=== PATIENT | female | born 1995 | race Caucasian/White ===

== ENCOUNTER 2021-12-07 11:51 | Emergency (ER) | payer BC, SELFPAY ==
[2021-12-07 12:05] VITALS: BP 143/90; PULSE 101; RESP 19; TEMP 37.1; O2SAT 98; BMI 34.4
[2021-12-07 12:45] LABS: UTC Influenza A Antigen Negative (Negative)
[2021-12-07 12:46] LABS: UTC Influenza B Antigen Negative (Negative)
--- NOTE | 2021-12-07 13:13 | HMH.EDUTC ---
[facility] [place] Dis[place] Clinical Impression: URI (upper respiratory infection) Qualifiers: URI type: unspecified URI Qualified Code(s): J06.9 - Acute upper respiratory infection, unspecified Disposition: Home, Self-Care Condition on Discharge: Good Instructions: Sinusitis, DI for Sinusitis, Cefdinir Additional Instructions: *Monitor Temp, Over the counter Motrin or Tylenol as directed/as needed Tylenol every 4 hours and Motrin every 6 hours (as long as your family doctor has told you that you can take it) for fever or pain. and straight to ER if unable to lower temp less than 101.0 after medication given *Warm salt water gargles may help to soothe the throat *Throat Lozenges *Warm fluids like tea with honey may help to soothe the throat *Sleep elevated *Humidifier/Vaporizer *Bromfed may cause drowsiness. Know how it effects you (your child) before driving, caring for small child, or sending your child to school. Not other antihistamines/allergy medications while taking bromfed Your throat swab was sent for culture. Those results are typically sent to your primary care. Be sure to follow up in 2-3 days with your family doctor/primary care physician if no improvement so they can review those result and treat if necessary. If you don?t have a primary care doctor, I recommend you get one but in the mean time, you will have to return to a walk in clinic Follow up IMMEDIATELY for new or worsening symptoms or no Noticeable improvement over the next 48-72 hours. 911 for difficulty breathing or swallowing You were tested for today for COVID19 your test result should be back in the next 24-48 hours, you may check the [facility] my Health portal for your results if you have trouble logging on or seeing your results you may call You was given a handout with instructions for Self Quarantine and Self isolation for while you wait on test results and what to do if they are positive If you are positive the Health Dept will be contacting you also Make sure to take your Vitamins Vit. C Vit D and Zinc if you can take them Prescriptions: Cefdinir [Omnicef 300mg Capsule] 300 mg PO BID #20 cap Transmission Status: Received by [facility] #[id number] Referrals: Dane,Gorge, MD [Primary Care Provider] - As needed Forms: Work/School Release Time of Disposition: 13:32 Medical Decision Making - Anupam Inquiry Pt receiving controlled substance: No Anupam was queried for this patient: No Vital Signs: 12/07/21 12:05 12/07/21 13:27 Temperature 98.8 F 98.8 F Temperature Source Oral Pulse Rate 101 H Pulse Rate [Right Brachial] 101 H Respiratory Rate 19 19 Blood Pressure 143/90 H Blood Pressure [Right Arm] 143/90 H Blood Pressure Mean [Right Arm] 107 Blood Pressure Source [Right Arm] Automatic Cuff Blood Pressure Position [Right Arm] Sitting 02 Sat by Pulse Oximetry 98 Oxygen Delivery Method Room Air - Lab Data Lab results reviewed: Yes: I reviewed the patient's lab results. Lab Results 12/07/21 12:05: Influenza Type A Ag Negative, Influenza Type B Ag Negative 12/07/21 13:04: Strep Scn Rapid Clinic Negative Orders (Tests/Meds): ORDERS Category Date Time Status Covid-19 Nasal PCR ([facility]) Routine Lab 12/07/21 12:33 Received Strep Screen Confirmation Stat Micro 12/07/21 13:04 Received Medical Decision Narrative: Patient states that she is allergic to amoxicillin but has taken Cefdinir in the past without complications or reactions [facility] [place] HPI - General Stated complaint: sore throat, cough, body aches/weakness, h/a Time Seen by Provider: 12/07/21 13:14 Mode of Arrival: Ambulatory Source of Information: Patient Limitations: No Limitations Description of Symptoms (Recalled from Triage Doc. by RN): PATIENT C/O PRODUCTIVE COUGH, BODY ACHES, AND CONGESTION X 1 WEEK HEENT Symptoms (Recalled from RN notes): Yes Resp Symptoms (Recalled from RN notes): Yes Skin Symptoms (Recalled from RN notes): No MS Symptoms (Recalled from R
[2021-12-07 13:15] LABS: UTC Strep Screen (Rapid) Negative (Negative)
[2021-12-07 13:27] VITALS: BP 143/90; PULSE 101; RESP 19; TEMP 37.1; O2SAT 98
== END 2021-12-07 13:39 | disposition home or self-care (01) ==
PROVIDERS: Emergency Provider Nurse Practitioner; PCP Social Worker
DX: U07.1 COVID-19 (principal); J06.9 Acute upper respiratory infection, unspecified
CPT/HCPCS: 87804; 87880; 99202; C9803; G0463; U0003; U0005

== ENCOUNTER → 2021-12-10 12:07 | Outpatient (CLI) | payer BC, SELFPAY | PROVIDERS: Visit Provider Nurse Practitioner | DX: U07.1 COVID-19 (principal) | CPT/HCPCS: C9803; U0003; U0005 ==

== ENCOUNTER → 2021-12-31 13:00 | Outpatient (CLI) | payer BC, SELFPAY ==
--- NOTE | 2021-12-31 13:04 | XR_ITS ---
FINAL REPORT CLINICAL HISTORY: LT FOOT PAIN, STEPPED ON BROKEN GLASS 1 YEAR AGO, PAIN AROUND HEEL FINDINGS: LEFT FOOT 2 views of the left foot were obtained. There is no acute fracture or dislocation. Visualized joint spaces are normally aligned. Within the left heel pad is a 10 mm foreign body. Calcaneal spur is noted. IMPRESSION: 10 mm foreign body in the left heel pad. Reviewed, Interpreted and Dictated by Casimiro Mcdaniel III, MD Transcribed by Chey Knutson Authenticated by Casimiro Mcdaniel III, MD on 12/31/2021 03:09:[address] [facility]
== END ==
PROVIDERS: PCP Social Worker; Visit Provider Social Worker
DX: M79.672 Pain in left foot (principal)
CPT/HCPCS: 73630

== ENCOUNTER → 2022-01-02 16:00 | Outpatient (CLI) | payer BC, SELFPAY ==
--- NOTE | 2022-01-02 16:06 | XR_ITS ---
PROCEDURE INFORMATION: Exam: XR Left Foot Exam date and time: 01/02/2022 4:06 PM Age: 26 years old Clinical indication: Condition or disease; Other: Post fb removal from left heel area; Patient HX: Glass fb removed from left heel. ; Additional info: Foreign body TECHNIQUE: Imaging protocol: XR Left foot. Views: 1 or 2 views. COMPARISON: CR XR FOOT LT MIN 3V 12/31/2021 1:07 PM FINDINGS: Bones/joints: There is no evidence of acutely displaced fractures. There is no evidence of joint dislocation. No aggressive osseous lesions. Soft tissues: In the 1st image, there is a 1 cm linear dense foreign body in the soft tissues of the heel. The foreign body is not visualized on the post removal images. No other radiopaque foreign bodies are appreciated. Swelling at the heel. IMPRESSION: Successful removal of a dense foreign body in the soft tissues of the heel. No residual foreign bodies noted.
== END ==
PROVIDERS: PCP Podiatrist; Visit Provider Podiatrist
DX: S90.852A Superficial foreign body, left foot, initial encounter (principal)
CPT/HCPCS: 73620

== ENCOUNTER → 2022-01-22 15:44 | Outpatient (CLI) | payer BC, SELFPAY | PROVIDERS: Visit Provider Obstetrics & Gynecology | DX: Z01.419 Encounter for gynecological examination (general) (routine) without abnormal findings (principal) | CPT/HCPCS: 87086 ==

== ENCOUNTER → 2022-01-29 11:15 | Outpatient (CLI) | payer BC, SELFPAY ==
[2022-01-29 11:46] LABS: Basophils # 0.1 K/mm3 (0-0.2); Basophils % 1.9 % (0.1-2.0); Eosinophils # 0.2 K/mm3 (0.0-0.4); Eosinophils % 2.8 % (0.1-12.0); Hematocrit 44.1 % (37.0-47.0); Hemoglobin 14.8 g/dL (12.2-16.2); Mean Corpuscular HGB Conc 33.6 g/dL (31.8-35.4); Mean Corpuscular Hemoglobin 31.2 pg (27.0-31.2); Mean Platelet Volume 9.4 fl (7.4-10.4); Monocytes # 0.2 K/mm3 (0.1-1.0); Monocytes % 3.4 % (1.7-9.3); Neutrophils % 61.8 % (37.0-80.0); Platelet Count 228 K/mm3 (142-424); Red Blood Count 4.74 M/mm3 (4.20-5.40); Red Cell Distribution Width 12.4 % (11.5-17.5); White Blood Count 6.5 K/mm3 (4.8-10.8)
[2022-01-29 13:00] LABS: Alanine Aminotransferase 23 U/L (12-78); Albumin Level 4.3 g/dl (3.5-5.0); Albumin/Globulin Ratio 1.5 (1.1-1.8); Alkaline Phosphatase 50 U/L (38-126); Anion Gap 11.9 mEq/L (5-15); Aspartate Amino Transferase 26 U/L (14-36); Bilirubin,Total 0.6 mg/dl (0.2-1.3); Blood Urea Nitrogen 7 mg/dl (7-17); Calcium 8.9 mg/dl (8.4-10.2); Carbon Dioxide 26 mmol/L (22.0-30.0); Chloride 105 mmol/L (98-107); Chol/HDL Ratio 3.4 (1-3.5); Cholesterol 168 mg/dl (140-200); Estimated Glomerular Filt Rate 102 ml/min (>60); GFR (African American) 123 ML/MIN (>60); Globulin 2.8 g/dL (1.3-3.2); Glucose 86 mg/dl (74-100); HDL Cholesterol 49 mg/dl (40-60); Potassium 3.9 mmoL/L (3.5-5.1); Sodium 139 mmol/L (136-145); Total Protein,Serum 7.1 g/dl (6.3-8.2); Triglycerides 66 mg/dl (30-150); VLDL Cholesterol 13 mg/dL (0-40)
[2022-01-29 13:11] LABS: Direct LDL Cholesterol 121.31 mg/dL (100-129)
[2022-01-29 13:17] LABS: 25-OH Vitamin D, Total 83.2 ng/mL (30-100)
[2022-01-29 13:32] LABS: Thyroid Stimulating Hormone 1.41 uIU/mL (0.465-4.68)
[2022-01-30 09:13] LABS: HIV Screen 4th Generation wRfx Non Reactive (Non Reactive); HSV 1 IgG, Type Spec <0.91 index (0.00-0.90); HSV 2 IgG, Type Spec <0.91 index (0.00-0.90)
[2022-01-30 10:14] LABS: Rapid Plasma Reagin Ab Titer Non Reactive (NonRea<1:1)
[2022-01-30 10:35] LABS: Vitamin B12 196 pg/mL (239-931)
[2022-01-30 12:12] LABS: Hepatitis B Surf Ab Quant >1000.0 mIU/mL (Immunity>9.9)
[2022-01-30 12:12] LABS: Hep A Ab, IgM Negative (Negative); Hepatitis B Core Antibody IgM Negative (Negative); Hepatitis B Surface Antigen Negative (Negative); Hepatitis C Antibody 0.1 s/co ratio (0.0-0.9)
== END ==
PROVIDERS: Obstetrics & Gynecology; PCP Social Worker; Visit Provider Social Worker
DX: Z01.419 Encounter for gynecological examination (general) (routine) without abnormal findings (principal); Z72.51 High risk heterosexual behavior; Z11.3 Encounter for screening for infections with a predominantly sexual mode of transmission; Z11.4 Encounter for screening for human immunodeficiency virus [HIV]
CPT/HCPCS: 36415; 80053; 80061; 80074; 82306; 82607; 84443; 85025; 86592; 86695; 86703; 86706; 86790; G0432

== ENCOUNTER → 2022-02-05 07:32 | Outpatient (CLI) | payer BC, SELFPAY ==
--- NOTE | 2022-02-05 07:40 | MR_ITS ---
FINAL REPORT CLINICAL HISTORY: LT SHOULDER PAIN, PT STATES SHOULDER CATCHES , PRIOR SURGERY IN 2013. NO PRIOR FINDINGS: Multiplanar MR imaging of the left shoulder was performed without contrast. The tendons of the rotator cuff are intact without evidence of rotator cuff tear. The a.c. joint is intact. No abnormal fluid is seen in the subacromial/subdeltoid bursa. There are postoperative changes in the glenoid and labrum. There is some irregularity of the posterior labrum. It is uncertain whether this represents postoperative change but a tear is not excluded. The long head of the biceps tendon is intact. No significant glenohumeral joint effusion is seen. There is no evidence of fracture or dislocation. The musculature is intact. There is no evidence of soft tissue mass. IMPRESSION: Postoperative change versus tear of the posterior labrum. Reviewed, Interpreted and Dictated by Casimiro Mcdaniel III, MD Transcribed by Dulce Frias Authenticated by Casimiro Mcdaniel III, MD on 02/05/2022 09:18:20 AM [facility]
== END ==
PROVIDERS: PCP Social Worker; Visit Provider Social Worker
DX: M25.512 Pain in left shoulder (principal)
CPT/HCPCS: 73221

== ENCOUNTER → 2022-02-18 09:33 | Outpatient (CLI) | payer BC, SELFPAY | PROVIDERS: PCP Social Worker; Visit Provider Social Worker | DX: M25.512 Pain in left shoulder (principal) ==

== ENCOUNTER → 2022-03-01 09:25 | Outpatient (CLI) | payer BC, SELFPAY ==
--- NOTE | 2022-03-01 09:36 | IR_ITS ---
FINAL REPORT CLINICAL HISTORY: left shoulder pain prior labrum tear in 2016 sx for posterior labrum tear prior mr of left shoulder on 02/05/22 0.27 flouro time 4.34 mGy FINDINGS: LEFT SHOULDER ARTHROGRAM HISTORY: Left shoulder pain, prior shoulder surgery. PHYSICIAN INDUSTRIAL COOK: Stephanie Pearl PA-C. ATTENDING PHYISICAN: Dr. Mcdaniel. PROCEDURE: Informed consent was obtained from the patient. Timeout procedure was performed prior to beginning. The patient was placed supine on the fluoroscopy table. Fluoroscopy was utilized to localize the left shoulder joint space. Skin was marked appropriately. Patient was prepped and draped in the usual sterile fashion over the left shoulder. Skin was anesthetized with 1% lidocaine. Access to the joint space was obtained using a 3-1/2 inch spinal needle. A small amount of Isovue contrast was injected to confirm needle placement. This was confirmed. Subsequently, approximately 20 mL of dilute gadolinium were gently injected into the joint space. The patient tolerated the procedure well and left the department in good condition. Fluoroscopy time: 27 seconds. 4 images were saved. IMPRESSION: Technically successful left shoulder injection for MR arthrogram. Please see MRI report. Reviewed, Interpreted and Dictated by Casimiro Mcdaniel III, MD Transcribed by Stephanie Pearl PA-C Authenticated by Casimiro Mcdaniel III, MD on 03/01/2022 01:06:53 PM [facility]
--- NOTE | 2022-03-01 10:30 | MR_ITS ---
FINAL REPORT CLINICAL HISTORY: LT SHOULDER PAIN. CHRONIC, PT STATES SHOULDER CATCHES , PRIOR SURGERY IN 2014. PRIOR @ [facility]. COMPARISON: 02/05/2022 FINDINGS: Multiplanar MR imaging of the left shoulder was performed after the intra-articular injection of dilute gadolinium solution. Motion artifact is identified on many of the images. The tendons of the rotator cuff are intact without evidence of rotator cuff tear. There is no evidence of contrast leakage from the glenohumeral joint to the subacromial/subdeltoid bursa. The a.c. joint is intact. There is abnormal morphology of the posterior labrum, appearance worrisome for a tear but could also represent postoperative change. The long head of the biceps tendon is intact. There is no evidence of fracture. The musculature is intact. No soft tissue mass or cyst is identified. IMPRESSION: Abnormal morphology of the posterior labrum most worrisome for a tear but could also represent postoperative change. Reviewed, Interpreted and Dictated by Casimiro Mcdaniel III, MD Transcribed by Dulce Frias Authenticated by Casimiro Mcdaniel III, MD on 03/01/2022 01:27:10 PM [facility]
== END ==
PROVIDERS: PCP Social Worker; Visit Provider Social Worker
DX: M25.512 Pain in left shoulder (principal)
CPT/HCPCS: 73040; 73222; Q9967

== ENCOUNTER 2022-03-13 10:52 | Emergency (ER) | payer BC, SELFPAY ==
[2022-03-13 11:03] VITALS: BP 127/71; PULSE 107; RESP 19; TEMP 36.8; O2SAT 96; BMI 31.3
--- NOTE | 2022-03-13 11:03 | HMH.EDUTC ---
[facility] [place] Clinical Impression: Viral syndrome Disposition: Home, Self-Care Condition on Discharge: Good Instructions: DI for Viral Syndrome Additional Instructions: Drink plenty of fluids. Take tylenol or ibuprofen for pain or fever. Take the medications as directed. Follow up with your regular doctor. GO TO THE ER FOR ANY WORSENING SYMPTOMS Prescriptions: Brompheniramine/Pseudoephed/Dm [Bromfed Dm Cough Syrup] 5 ml PO Q6HP PRN #240 ml PRN Reason: Cough Transmission Status: Received by [facility] Ondansetron [Zofran 4mg ODT] 4 mg PO Q8HP PRN #12 tab PRN Reason: Nausea Transmission Status: Received by [facility] Referrals: Gorge Vela MD [Primary Care Provider] - Time of Disposition: 11:34 Medical Decision Making - Medical Records Medical records reviewed: No: I reviewed the patient's medical records. - Anupam Inquiry Pt receiving controlled substance: No Vital Signs: 03/13/22 11:03 03/13/22 11:50 Temperature 98.2 F 98.2 F Temperature Source Oral Pulse Rate 107 H Pulse Rate [Left] 107 H Respiratory Rate 19 19 Blood Pressure 127/71 Blood Pressure [Right Arm] 127/71 Blood Pressure Mean [Right Arm] 89 02 Sat by Pulse Oximetry 96 - Lab Data Lab results reviewed: Yes: I reviewed the patient's lab results. Lab Results 03/13/22 11:03: Group A Strep Rapid Negative 03/13/22 11:06: Influenza Type A Ag Negative, Influenza Type B Ag Negative 03/13/22 11:36: Chlamy pneumoniae PCR Not detected, Adenovirus (PCR) Not detected, B. pertussis DNA (PCR) Not detected, Coronavirus OC43 (PCR) Detected A, Coronavirus HKU1 (PCR) Not detected, Coronavirus 229E (PCR) Not detected, SARS-CoV-2 (PCR) Not detected, Coronavirus NL63 (PCR) Not detected, Human Metapneumovir PCR Not detected, Influenza A (H1) PCR Not detected, Influ A (H1N1/09) PCR Not detected, Influenza A (H3) PCR Not detected, Influenza Type A (PCR) Not detected, Influenza Type B (PCR) Not detected, M. pneumoniae (PCR) Not detected, Parainfluenza 1 (PCR) Not detected, Parainfluenza 2 (PCR) Not detected, Parainfluenza 3 (PCR) Not detected, Parainfluenza 4 (PCR) Not detected, RSV (PCR) Not detected, Entero/Rhino (PCR) Detected A Orders (Tests/Meds): ORDERS Category Date Time Status Strep Screen Confirmation Stat Micro 03/13/22 11:03 Received [facility] [place] - General Stated complaint: runny nose, sneezing Time Seen by Provider: 03/13/22 11:03 - History of Present Illness Provider Complaint: She c/o cough, body aches and malaise since yesterday - Related Data Home Medications Medication Instructions Recorded Confirmed Dextroamphetamine/Amphetamine 20 mg PO DAILY 12/07/21 01/22/22 [Adderall 20 mg Tablet] levothyroxine 50 mcg tablet 50 mcg PO tab 01/02/22 01/22/22 semaglutide 1 mg/dose (4 mg/3 mL) 1 mg SQ ml 01/17/22 01/22/22 subcutaneous pen injector Previous Rx's Medication Instructions Recorded ibuprofen 800 mg tablet 800 mg PO BID PRN 30 Days #60 tab 01/02/22 ciprofloxacin HCl 250 mg tablet 250 mg PO BID 5 Days #10 tab 01/22/22 etonogestrel 0.12 mg-ethinyl 1 vag ring VAGINAL ONCE #3 each 01/22/22 estradiol 0.015 mg/24 hr vaginal ring sulfamethoxazole 800 1 tab PO DAILY #30 tab 01/22/22 mg-trimethoprim 160 mg tablet Brompheniramine/Pseudoephed/Dm 5 ml PO Q6HP PRN #240 ml 03/13/22 [Bromfed Dm Cough Syrup] Ondansetron [Zofran 4mg ODT] 4 mg PO Q8HP PRN #12 tab 03/13/22 Allergies Allergy/AdvReac Type Severity Reaction Status Date / Time amoxicillin Allergy Mild Hives Verified 01/22/22 11:06 azithromycin [From Zithromax] Allergy Verified 01/22/22 11:06 [facility] History - Hepatitis A Screen Attestation statement:: This patient has been screened for Hepatitis A risk factors. I have reviewed the patient's past medical history: Yes Other Medical History: Reports: Hypothyroidism Laterality Cases: Left: Arthroscopy Shoulder, Bilateral: Other Other
[2022-03-13 11:17] LABS: UTC Influenza A Antigen Negative (Negative); UTC Influenza B Antigen Negative (Negative)
[2022-03-13 11:44] LABS: Strep Scrn Group A (Rapid) Negative (Negative)
[2022-03-13 11:46] LABS: Adenovirus,PCR Not Detected (NotDetected); Bordetella Pertussis Not Detected (NotDetected); Chlamydophila Pneumoniae, PCR Not Detected (NotDetected); Coronavirus 19, PCR Not Detected (NotDetected); Coronavirus 229E Not Detected (NotDetected); Coronavirus NL63 Not Detected (NotDetected); Coronovirus HKU1,PCR Not Detected (NotDetected); Human Metapneumovirus Not Detected (NotDetected); Influenza A, PCR Not Detected (NotDetected); Influenza AH1, 2009 Not Detected (NotDetected); Influenza AH1, PCR Not Detected (NotDetected); Influenza AH3,PCR Not Detected (NotDetected); Influenza B, PCR Not Detected (NotDetected); Mycoplasma Pneumoniae, PCR Not Detected (NotDetected); Parainfluenza 1, PCR Not Detected (NotDetected); Parainfluenza 2, PCR Not Detected (NotDetected); Parainfluenza 3, PCR Not Detected (NotDetected); Parainfluenza 4, PCR Not Detected (NotDetected); Respiratory Syncytial Virus Not Detected (NotDetected)
[2022-03-13 11:50] VITALS: BP 127/71; PULSE 107; RESP 19; TEMP 36.8
[2022-03-13 15:20] LABS: Coronavirus OC43 Detected (NotDetected); Rhinovirus/Enterovirus Detected (NotDetected)
== END 2022-03-13 11:51 | disposition home or self-care (01) ==
PROVIDERS: Emergency Provider Nurse Practitioner Family; PCP Social Worker
DX: B34.2 Coronavirus infection, unspecified (principal)
CPT/HCPCS: 87430; 87581; 87632; 87798; 87804; 99213; C9803; G0463; U0003; U0005

== ENCOUNTER 2022-09-19 17:00 | Outpatient (RCR) | payer BC, SELFPAY | END 2022-09-19 17:05 | disposition home or self-care (01) | LOC: PT 17:00 | PROVIDERS: PCP Social Worker | DX: M25.312 Other instability, left shoulder (principal) | CPT/HCPCS: 97110; 97163; 97530 ==

== ENCOUNTER 2023-02-10 12:17 | Emergency (ER) | payer BC, SELFPAY ==
[2023-02-10 12:30] VITALS: BP 117/79; PULSE 107; RESP 19; TEMP 37.2; O2SAT 98; BMI 43.9
[2023-02-10 12:48] LABS: UTC Strep Screen (Rapid) Negative (Negative)
[2023-02-10 12:49] LABS: UTC Influenza A Antigen Negative (Negative)
[2023-02-10 12:50] LABS: UTC Influenza B Antigen Negative (Negative)
--- NOTE | 2023-02-10 12:50 | EXP.UTC ---
Discharge Plan Disposition Patient Disposition: Home, Self-Care Condition: Good Prescriptions Prescriptions: No Action levothyroxine 50 mcg tablet 50 mcg PO DAILY Label Comments: TAKE ONE TABLET BY MOUTH ONCE DAILY etonogestrel-ethinyl estradiol 0.12-0.015 mg/24 hr ring 1 vag ring VAGINAL ONCE Qty: 3 11RF Referrals Follow up/Referrals: Gorge Vela MD [Primary Care Provider] - See instructions Activity Restrictions/Add. Instructions Additional Instructions/Restrictions: *Monitor Temp, Over the counter Motrin or Tylenol as directed/as needed Tylenol every 4 hours and Motrin every 6 hours (as long as your family doctor has told you that you can take it) for fever or pain. and straight to ER if unable to lower temp less than 101.0 after medication given *Warm salt water gargles may help to soothe the throat *Throat Lozenges? *Warm fluids like tea with honey may help to soothe the throat? *Sleep elevated *Humidifier/Vaporizer Your throat swab was sent for culture. Those results are typically sent to your primary care. Be sure to follow up in 2-3 days with your family doctor/primary care physician if no improvement so they can review those result and treat if necessary. If you don?t have a primary care doctor, I recommend you get one but in the mean time, you will have to return to a walk in clinic Follow up IMMEDIATELY for new or worsening symptoms or no Noticeable improvement over the next 48-72 hours. 911 for difficulty breathing or swallowing Clinical Impressions Clinical Impression: Viral syndrome Stand Alone Forms Stand Alone Forms: Work/School Release Instructions Patient Instructions: Sore Throat, DI for Viral Syndrome Discharge ED Provider: Jessica Pettit [facility] [place] H[place] General Stated complaint: fever, body aches, runny nose, MEJIA Mode of Arrival: Ambulatory Source of Information: Patient Limitations: No Limitations Time Seen by Provider: 02/10/23 12:50 Description of Symptoms (Recalled from Triage Doc. by RN): PATIENT C/O BODY ACHES, HEADACHE, RUNNY NOSE, CONGESTION, FEVER, SORE THROAT, VOMITING AND DIARRHEA X 2 DAYS HEENT Symptoms (Recalled from RN notes): Yes Resp Symptoms (Recalled from RN notes): Yes Skin Symptoms (Recalled from RN notes): No MS Symptoms (Recalled from RN notes): No Functional Status (Recalled from RN notes): WNL History of Present Illness Provider Complaint: Patient states that she hasnt felt well for the last couple of days States that she has been having fever, chills, bodyaches, and sore throat States that she has also had some nasal congestion State that today her throat was still hurting and she was worried that she may have strep throat so she came in to get checked Related Data Home Medications Medication Instructions Recorded Confirmed levothyroxine 50 mcg tablet 50 mcg PO DAILY THYROID 01/02/22 02/10/23 Previous Rx's Medication Instructions Recorded etonogestrel 0.12 mg-ethinyl 1 vag ring vaginal ONCE 01/22/22 estradiol 0.015 mg/24 hr vaginal control #3 ea ring Allergies Allergy/AdvReac Type Severity Reaction Status Date / Time amoxicillin Allergy Mild Hives Verified 01/22/22 11:06 azithromycin [From Zithromax] Allergy Verified 01/22/22 11:06 Worker's Comp Is this a Worker's Comp case?: No PFSH PENDING SALE TO [facility] Disclaimer: The information contained in this section may have been updated after the patient was seen, as this information can be updated by other users. Social History Smoking Status: Never smoker alcohol intake: never current occupational status: employed and student Travel in the last 8 weeks: None ROS Obtained: Yes All systems reviewed & no additional complaints except as documented and Yes Systems reviewed as appropriate & no additional complaints except as documented Constitutional Constitutional: Reports system reviewed and no additional complaints, except as documented, Reports as per
[2023-02-10 13:06] VITALS: BP 117/79; PULSE 107; RESP 19; TEMP 37.2; O2SAT 98
== END 2023-02-10 13:12 | disposition home or self-care (01) ==
PROVIDERS: Emergency Provider Nurse Practitioner; PCP Social Worker
DX: R07.0 Pain in throat (principal); R50.9 Fever, unspecified; R09.81 Nasal congestion; B34.9 Viral infection, unspecified
CPT/HCPCS: 87804; 87880; 99212; 99213; G0463

== ENCOUNTER 2023-10-16 09:50 | Emergency (ER) | payer BC, SELFPAY ==
[2023-10-16 10:00] VITALS: BP 135/78; PULSE 110; RESP 20; TEMP 38.2; O2SAT 98; BMI 17.7
[2023-10-16 10:10] LABS: UTC Strep Screen (Rapid) Positive (Negative)
--- NOTE | 2023-10-16 10:21 | EXP.UTC ---
Discharge Plan Disposition Patient Disposition: Home, Self-Care Condition: Good Prescriptions Prescriptions: New cefdinir 300 mg capsule 300 mg PO BID Qty: 20 0RF No Action levothyroxine 50 mcg tablet 50 mcg PO DAILY Patient Comments: TAKE ONE TABLET BY MOUTH ONCE DAILY etonogestrel-ethinyl estradiol 0.12-0.015 mg/24 hr ring 1 vag ring VAGINAL ONCE Qty: 3 11RF Referrals Follow up/Referrals: Gorge Vela MD [Primary Care Provider] - See instructions Activity Restrictions/Add. Instructions Additional Instructions/Restrictions: *Monitor Temp, Over the counter Motrin or Tylenol as directed/as needed Tylenol every 4 hours and Motrin every 6 hours (as long as your family doctor has told you that you can take it) for fever or pain. and straight to ER if unable to lower temp less than 101.0 after medication given *Warm salt water gargles may help to soothe the throat *Throat Lozenges? *Warm fluids like tea with honey may help to soothe the throat? *Sleep elevated *Humidifier/Vaporizer *If you did not take Penicillin shot or was unable to, start taking antibiotic immediately and make sure that you take it for the FULL length of time although you should start to feel better in 24-48 hours *change toothbrush and toothpaste 24-48 hours after starting to take antibiotics so you do not reinfect yourself Monitor Temp. Tylenol and/or Ibuprofen as needed. ER if fever is no less than 101 despite alternating Tylenol and Ibuprofen * Encourage fluids, water, Gatorade, powerade, pedialyte if /toddler/or child *Cold fluids, popsicles and ice cream may feel good on his throat Follow up IMMEDIATELY for new or worsening symptoms or no Noticeable improvement over the next 48-72 hours. 911 for difficulty breathing or swallowing Clinical Impressions Clinical Impression: Strep throat Instructions Patient Instructions: DI for Strep Throat, Strep Throat Discharge ED Provider: Jessica Pettit [facility] [place] HPI General Stated complaint: sore throat, body aches, fever Mode of Arrival: Ambulatory Source of Information: Patient Limitations: No Limitations Time Seen by Provider: 10/16/23 10:21 Description of Symptoms (Recalled from Triage Doc. by RN): PATIENT C/O FEVER, SORE THROAT AND BODY ACHES SINCE YESTERDAY HEENT Symptoms (Recalled from RN notes): Yes Resp Symptoms (Recalled from RN notes): No Skin Symptoms (Recalled from RN notes): No MS Symptoms (Recalled from RN notes): No Functional Status (Recalled from RN notes): WNL History of Present Illness Provider Complaint: Patient states that she started feeling bad yesterday having sore throat, fever and body aches States that she feels like she may have strep throat Related Data Home Medications Medication Instructions Recorded Confirmed levothyroxine 50 mcg tablet 50 mcg PO DAILY THYROID 01/02/22 02/10/23 Previous Rx's Medication Instructions Recorded etonogestrel 0.12 mg-ethinyl 1 vag ring vaginal ONCE 01/22/22 estradiol 0.015 mg/24 hr vaginal control #3 ea ring cefdinir 300 mg capsule 300 mg PO BID #20 caps 10/16/23 Allergies Allergy/AdvReac Type Severity Reaction Status Date / Time amoxicillin Allergy Mild Hives Verified 01/22/22 11:06 azithromycin [From Zithromax] Allergy Verified 01/22/22 11:06 Worker's Comp Is this a Worker's Comp case?: No [facility] Disclaimer: The information contained in this section may have been updated after the patient was seen, as this information can be updated by other users. Social History Smoking Status: Never smoker alcohol intake: never current occupational status: employed and student Travel in the last 8 weeks: None ROS Obtained: Yes All systems reviewed & no additional complaints except as documented and Yes Systems reviewed as appropriate & no additional complaints except as documented Constitutional Constitutional: Reports syste
[2023-10-16 10:35] VITALS: BP 135/78; PULSE 110; RESP 20; TEMP 38.2; O2SAT 98
== END 2023-10-16 10:40 | disposition home or self-care (01) ==
PROVIDERS: Emergency Provider Nurse Practitioner; PCP Social Worker
DX: J02.0 Streptococcal pharyngitis (principal); R07.0 Pain in throat; R50.9 Fever, unspecified
CPT/HCPCS: 87880; 99212; 99214; G0463

== ENCOUNTER 2023-11-17 15:14 | Emergency (ER) | payer BC, SELFPAY ==
[2023-11-17] VITALS (9 sets, daily range): BP systolic 92–147; BP diastolic 67–91; PULSE 85–106; RESP 16–25; TEMP 36.6–36.8; O2SAT 97–99; BMI 36.9
--- NOTE | 2023-11-17 15:29 | XR_ITS ---
FINAL REPORT CLINICAL HISTORY: concern for fx, patient was playing with dog and fell. Right lower leg deformities. Done portable. Trauma shielded. FINDINGS: RIGHT KNEE 3 views of the right knee were obtained. There is a comminuted, mildly displaced fracture of the proximal fibular diaphysis. Knee joint is intact. Soft tissue swelling is noted. IMPRESSION: Comminuted, mildly displaced fracture of the proximal fibular diaphysis. Reviewed, Interpreted and Dictated by [place] Vicente MD Transcribed by Chey Knutson Authenticated and [facility]
--- NOTE | 2023-11-17 15:29 | XR_ITS ---
FINAL REPORT CLINICAL HISTORY: concern for fx, patient was playing with dog and fell. Right lower leg deformities and swelling. shielded. FINDINGS: RIGHT TIBIA AND FIBULA AP and lateral views of the right tibia and fibula were obtained. There is a comminuted, displaced fracture of the tibial diaphysis with half shaft width posterior and lateral displacement. Additionally, there is a comminuted, mildly displaced fracture of the proximal fibular diaphysis. IMPRESSION: Comminuted, displaced fractures of the tibia and fibula. Reviewed, Interpreted and Dictated by Mt Vicente MD Transcribed by Chey Knutson Authenticated and [facility]
--- NOTE | 2023-11-17 15:29 | XR_ITS ---
FINAL REPORT CLINICAL HISTORY: concern for fx, right lower leg deformities and swelling. Playing with dog and fell. shielded. FINDINGS: RIGHT ANKLE 3 views of the right ankle were obtained. There a comminuted, displaced fracture of the distal tibial diaphysis with half shaft width posterior displacement and half shaft width lateral displacement. The mortise is intact. Visualized joint spaces are normally aligned. Soft tissues are unremarkable. IMPRESSION: Comminuted, displaced fracture of the distal tibial diaphysis. Reviewed, Interpreted and Dictated by Mt Vicente MD Transcribed by Chey Knutson Authenticated and [facility]
--- NOTE | 2023-11-17 15:29 | XR_ITS ---
FINAL REPORT CLINICAL HISTORY: concern for fx, fell while playing with dog. Right lower leg deformities and swelling. FINDINGS: RIGHT FOOT 3 views of the right foot were obtained. There is no acute fracture or dislocation. Visualized joint spaces are normally aligned. Soft tissues are unremarkable. IMPRESSION: No acute bony abnormality. Reviewed, Interpreted and Dictated by Mt Vicente MD Transcribed by Chey Knutson Authenticated and . [facility]
--- NOTE | 2023-11-17 15:35 | HMH.EDGENADL ---
Discharge Plan Disposition Patient Disposition: Home, Self-Care Chief Complaint: PAIN Prescriptions Prescriptions: No Action levothyroxine 50 mcg tablet 50 mcg PO DAILY Patient Comments: TAKE ONE TABLET BY MOUTH ONCE DAILY etonogestrel-ethinyl estradiol 0.12-0.015 mg/24 hr ring 1 vag ring VAGINAL ONCE Qty: 3 11RF cefdinir 300 mg capsule 300 mg PO BID Qty: 20 0RF Referrals Follow up/Referrals: Provider,Referral, MD [Primary Care Provider] - See instructions Clinical Impressions Clinical Impression: Closed displaced comminuted fracture of shaft of right fibula Qualifiers: Encounter type: initial encounter Qualified Code(s): S82.451A - Displaced comminuted fracture of shaft of right fibula, initial encounter for closed fracture Closed fracture of right tibia Qualifiers: Encounter type: initial encounter Tibia location: shaft Fracture morphology: comminuted Fracture alignment: displaced Qualified Code(s): S82.251A - Displaced comminuted fracture of shaft of right tibia, initial encounter for closed fracture Discharge ED Provider: Truman Peters General Adult HPI General Chief complaint: PAIN Stated complaint: AO12/18 Rt leg inj Time Seen by Provider: 11/17/23 15:20 History of Present Illness HPI narrative: 28-year-old female history of hypothyroidism presenting with right leg injury. Was playing with her dog, snow, slipped, leg fell underneath her and she felt a pop and immediate pain. Unable to bear weight. This happened just before arrival. Came to the emergency department for further evaluation. Related Data Home Medications Medication Instructions Recorded Confirmed levothyroxine 50 mcg tablet 50 mcg PO DAILY THYROID 01/02/22 02/10/23 Previous Rx's Medication Instructions Recorded etonogestrel 0.12 mg-ethinyl 1 vag ring vaginal ONCE 01/22/22 estradiol 0.015 mg/24 hr vaginal control #3 ea ring cefdinir 300 mg capsule 300 mg PO BID #20 caps 10/16/23 Allergies Allergy/AdvReac Type Severity Reaction Status Date / Time amoxicillin Allergy Mild Hives Verified 01/22/22 11:06 azithromycin [From Zithromax] Allergy Verified 01/22/22 11:06 [facility] Disclaimer: The information contained in this section may have been updated after the patient was seen, as this information can be updated by other users. Social History Smoking Status: Never smoker alcohol intake: never current occupational status: employed and student Travel in the last 8 weeks: None ROS Obtained: Yes All systems reviewed & no additional complaints except as documented Physical Exam General General appearance: alert and in distress Head Head exam: atraumatic and normocephalic Eye Eye exam: Present normal appearance, PERRL and EOMI ENT ENT exam: Present mucous membranes moist Neck Neck exam: Present normal inspection, full ROM and trachea midline Respiratory Respiratory exam: Absent respiratory distress, wheezes, stridor, accessory muscle use or prolonged expiratory phase Cardiovascular Cardiovascular exam: Present normal rhythm Abdominal Exam Abdominal exam: Present soft; Absent distention, tenderness, guarding, rebound, rigidity or normal bowel sounds Extremities Exam Extremities exam: Present other (Tenderness, deformity, swelling right lower extremity at level of mid tibia. Tender from knee down to mid tibia. No fibular tenderness. Neurovascularly intact.); Absent edema Neurological Exam Neurological exam: Present alert, oriented X3, CN II-XII intact and normal gait; Absent motor sensory deficit Skin Skin exam: Present warm and dry; Absent diaphoresis or erythema Medical Decision Making Medical Records Medical records reviewed: Yes I reviewed the patient's medical records. Anupam Inquiry Pt receiving controlled substance: No Anupam was queried for this patient: No Vital Signs: 11/17/23 15:33 11/17/23 15:46 11/17/23 16:46 Temperature 98.2 F Temperature Source
--- NOTE | 2023-11-17 15:56 | PC.NURSE ---
RAD at [facility]
--- NOTE | 2023-11-17 16:29 | PC.NURSE ---
Dr. Odonnell pagehenny
--- NOTE | 2023-11-17 17:08 | PC.NURSE ---
spoke with Dr. Odonnell and Anesthesia, d/t pt eating last at noon. pt to be NPO for [address] Odonnell states for surgery [facility] pricing consultant team to be here at 7 for setup. Spoke with Lalitha Johns and Anesthesia regarding time for procedure.
--- NOTE | 2023-11-17 17:15 | PC.NURSE ---
Dr. Odonnell called at this time stating pt has requested to be transferred.
--- NOTE | 2023-11-17 17:17 | PC.NURSE ---
Spoke with Nat Doty, and Anesthesia regarding hold on surgery at this time d/t possible transfer.
--- NOTE | 2023-11-17 17:21 | PC.NURSE ---
Waiting on callback from CB
--- NOTE | 2023-11-17 17:25 | PC.NURSE ---
3rd alliance party caller, Petros Gomez APRN, states I work for Dr. Gorge Vela at and this is his patient. He said he talked to and they are no longer on divert and if you call them back they will make room for her . Pt & her family have already s/w MD Peters and advised she was choosing to go to [facility], who Dr Peters was currently speaking to for transfer. The caller states she would like to speak to the provider. I placed her on hold while provider was s/w [facility]. When Dr. Peters completed his call and I spoke to him, he proceeded to have a conversation with pt & the family. When provider was available to take the call, she was no longer on the phone.
--- NOTE | 2023-11-17 17:27 | PC.NURSE ---
Dr. Peters speaking with Dr. Bowman at [facility]
--- NOTE | 2023-11-17 17:35 | PC.NURSE ---
Pt accepted to [facility] by Dr. Bowman
--- NOTE | 2023-11-17 17:36 | PC.NURSE ---
Pt/family updated that she has been accepted to and there will be a delay in transportation by ambulance due to the fact that one of our ambulances is out of the [facility] at this time. Pt/family voiced understanding at this time.
--- NOTE | 2023-11-17 18:58 | PC.NURSE ---
[facility]LE AWARE OF TRANSFER TO [facility]
--- NOTE | 2023-11-17 19:01 | PC.NURSE ---
report called to [facility] charge, [place]
--- NOTE | 2023-11-17 20:03 | PC.NURSE ---
pt actively vomiting, meds ordered and given, awaiting ems transport, positive pulses in right lower extremity noted
== END 2023-11-17 20:31 | disposition home or self-care (01) ==
PROVIDERS: Emergency Provider Emergency Medicine
DX: S82.251A Displaced comminuted fracture of shaft of right tibia, initial encounter for closed fracture (principal); S82.451A Displaced comminuted fracture of shaft of right fibula, initial encounter for closed fracture; E03.9 Hypothyroidism, unspecified; W01.0XXA Fall on same level from slipping, tripping and stumbling without subsequent striking against object, initial encounter
CPT/HCPCS: 73562; 73590; 73610; 73630; 96374; 96375; 96376; 99285; J0131; J2405

== ENCOUNTER 2024-03-18 17:17 | Emergency (ER) | payer BC, SELFPAY ==
[2024-03-18 17:25] VITALS: BP 101/81; PULSE 105; RESP 19; TEMP 37.7; O2SAT 99; BMI 36.0
--- NOTE | 2024-03-18 17:34 | ED_ITS ---
Discharge Plan Disposition Patient Disposition: Home, Self-Care Condition: Good Prescriptions Prescriptions: New cefdinir 300 mg capsule 300 mg PO BID 10 Days Qty: 20 0RF No Action levothyroxine 50 mcg tablet 50 mcg PO DAILY Patient Comments: TAKE ONE TABLET BY MOUTH ONCE DAILY etonogestrel-ethinyl estradiol 0.12-0.015 mg/24 hr ring 1 vag ring VAGINAL ONCE Qty: 3 11RF Referrals Follow up/Referrals: Provider,Referral, MD [Primary Care Provider] - See instructions Activity Restrictions/Add. Instructions Additional Instructions/Restrictions: *Monitor Temp, Over the counter Motrin or Tylenol as directed/as needed Tylenol every 4 hours and Motrin every 6 hours (as long as your family doctor has told you that you can take it) for fever or pain. and straight to ER if unable to lower temp less than 101.0 after medication given *Warm salt water gargles may help to soothe the throat *Throat Lozenges? *Warm fluids like tea with honey may help to soothe the throat? *Sleep elevated *Humidifier/Vaporizer Your throat swab was sent for culture. Those results are typically sent to your primary care. Be sure to follow up in 2-3 days with your family doctor/primary care physician if no improvement so they can review those result and treat if necessary. If you don?t have a primary care doctor, I recommend you get one but in the mean time, you will have to return to a walk in clinic Follow up IMMEDIATELY for new or worsening symptoms or no Noticeable improvement over the next 48-72 hours. 911 for difficulty breathing or swallowing Clinical Impressions Clinical Impression: Pharyngitis Qualifiers: Pharyngitis/tonsillitis etiology: unspecified etiology Qualified Code(s): J02.9 - Acute pharyngitis, unspecified Instructions Patient Instructions: Sore Throat Discharge ED Provider: Jessica Pettit [facility] General Stated complaint: sore throat, fever Mode of Arrival: Ambulatory Source of Information: Patient Limitations: No Limitations Time Seen by Provider: 03/18/24 17:34 Description of Symptoms (Recalled from Triage Doc. 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 and she started today with her throat hurting and having fever like she had last time she had strep throat so she came in to get checked Related Data Home Medications Medication Instructions Recorded Confirmed levothyroxine 50 mcg tablet 50 mcg PO DAILY THYROID 01/02/22 02/10/23 Previous Rx's Medication Instructions Recorded etonogestrel 0.12 mg-ethinyl 1 vag ring vaginal ONCE 01/22/22 estradiol 0.015 mg/24 hr vaginal control #3 ea ring cefdinir 300 mg capsule 300 mg PO BID 10 days #20 caps 03/18/24 Allergies Allergy/AdvReac Type Severity Reaction Status Date / Time amoxicillin Allergy Mild Hives Verified 01/22/22 11:06 azithromycin [From Zithromax] Allergy Verified 01/22/22 11:06 Worker's Comp Is this a Worker's Comp case?: No [facility] Disclaimer: The information contained in this section may have been updated after the patient was seen, as this information can be updated by other users. Social History Smoking Status: Never smoker alcohol intake: never current occupational status: employed and student Travel in the last 8 weeks: None ROS Obtained: Yes All systems reviewed & no additional complaints except as documented and Yes Systems reviewed as appropriate & no additional complaints except as documented Constitutional Constitutional: Reports system reviewed and no additional complaints, except as documented, Reports as per HPI, Reports fever(s) and Reports headache(s) ENT Ears, Nose, Mouth, and Throat: Reports system reviewed and no additional complaints, except as documented, Reports as per HPI, Reports headache(s) and Reports sore throat Cardiovascular Cardiovascular: Reports system reviewed and no additional complaints, except as documented and Reports as per HPI Respiratory Respiratory: Reports system reviewed and no additional complaints, except as documented and Reports as per HPI Gastrointestinal Gastrointestingal: Reports system reviewed and no additional complaints, except as documented and as per HPI Neurologic Neurologic: Reports headache(s) Physical Exam General General appearance: alert and in no apparent distress ENT ENT exam: Present mucous membranes moist Expanded ENT Exam Nose exam: Present sinus tenderness Throat exam: Present tonsillar erythema (small patchy like area noted on right) Respiratory Respiratory exam: Present normal lung sounds bilaterally; Absent respiratory distress or wheezes Cardiovascular Cardiovascular exam: Present regular rate, normal rhythm and normal heart sounds Neurological Exam Neurological exam: Present alert, oriented X3 and normal gait Medical Decision Making Anupam Inquiry Pt receiving controlled substance: No Anupam was queried for this patient: No Vital Signs: 03/18/24 17:25 Temperature 99.8 F H Temperature Source Oral Pulse Rate [Left Brachial] 105 H Respiratory Rate 19 Blood Pressure [Left Arm] 101/81 L Blood Pressure Mean [Left Arm] 87 Blood Pressure Source [Left Arm] Automatic Cuff Blood Pressure Position [Left Arm] Sitting 02 Sat by Pulse Oximetry 99 Oxygen Delivery Method Room Air Lab Data Lab results reviewed: Yes I reviewed the patient's lab results. Medical Decision Narrative: Patient states that she is allergic to Amoxicillin but has taken Cefdnir in the past without complications or reactions
[2024-03-18 17:42] LABS: UTC Strep Screen (Rapid) Negative (Negative)
[2024-03-18 17:47] VITALS: BP 101/81; PULSE 105; RESP 19; TEMP 37.7; O2SAT 99
== END 2024-03-18 17:49 | disposition home or self-care (01) ==
PROVIDERS: Emergency Provider Nurse Practitioner
DX: J02.9 Acute pharyngitis, unspecified (principal); R50.9 Fever, unspecified; R51.9 Headache, unspecified
CPT/HCPCS: 87880; 99212; 99214; G0463

== ENCOUNTER 2024-03-24 17:00 | Outpatient (RCR) | payer BC, SELFPAY | END 2024-03-24 18:10 | disposition home or self-care (01) | LOC: PT 17:00 | PROVIDERS: Visit Provider Social Worker | DX: M79.662 Pain in left lower leg (principal); S82.252A Displaced comminuted fracture of shaft of left tibia, initial encounter for closed fracture; M25.571 Pain in right ankle and joints of right foot; S82.91XA Unspecified fracture of right lower leg, initial encounter for closed fracture | CPT/HCPCS: 97016; 97110; 97112; 97163; 97164; 97530 ==